=== PATIENT | female | born 1945 | race Caucasian/White ===

== ENCOUNTER 2017-01-06 15:00 | Outpatient (RCR) | payer MEDICARE, BC, SELFPAY ==
--- NOTE | 2017-01-06 11:25 | HP.PTEVAL_ITS ---
Patient's Visit Information SHAWN HUMPHREYS is a 71 year old F referred to Physical Therapy by Eddie Easley with a diagnosis of Bilateral Shoulder pain. Date of Evaluation: 01/06/17 Physical Therapist: Winter Castro - Visit Plan Frequency: 2x /Week Duration: 4 Weeks Plan: Follow up with MD for possible imaging then PT for strength, function and pain management. - Subjective Subjective: Had an injection in the right shoulder- ended up with a weaker right arm. 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 [place] something in her deltoid go but it didn't really bother her. Now its getting worse. Can't write without pain, put a seat belt on. Pain goes from shoulder to elbow. Right hand dominate. Can't do anything without pain. Has gotten worse since end of November. Sleep: doesn't keep her awake at night. Worst: 10/08 Agg: any movement, driving, writing. Best: 03/10 achy. Eases: resting it. Writting- sharp pains. The pain feels deep. No N/T in the hand. Has not had an MRI. Has not gone to see PCP yet was just referred to PT. No neck-no shoulder blade pain. No PETE, blurred vision, dizziness. Can't do any of her normal exercise secondary to pain. PMHx/Meds: no change since - Objective Posture: FH, RS, Increased guarding of the right UE. Palpation: tender along medial border of the scapula with moderate winging, upper trap to the tip of the acromion- along the bicpital groove. ROM: WNL in all planes but reports pain at end range IR behind the back and throughout ROM abduction. elbow/wrist/ hand: WNL. Cervical: WNL. Strength: Scap: fair minus, Shoulder: flexion/ abduction: 4-/5 with pain, extn: 5/5, IR: 4/5, ER: 3+/5 with pain. Elbow: 5/5 with pain, Wrist/Hand: WNL. Sensation: WNL. Special Test: Empty Can: positive , [place] Impingment: positive - Goals Goal 1:: Patient will be I with HEP and progression Goal Time Frame: 4-6 Weeks Goal 2:: Patient will demo full AROM with 0/10 pain Goal Time Frame: 4-6 Weeks Goal 3:: Patient britt demo full strength in UE where deficit to ease ADL's. Goal Time Frame: 4-6 Weeks Goal 4:: Patient will maintain proper posture to demo increased scap s/s. Goal Time Frame: 4-6 Weeks - Rehabilitation Potential Physical Therapy Diagnosis: Patient presents with hypomobility- she has decreased ROM, strength and muscular enduarance leading to poor posture and increased pain with ADL's. - Anticipated Interventions Patient/Client Instruction: Educate patient on: Benefits of Fitness Program For the Purpose of:: To increase tolerance to activity/condition/position Therapeutic Exercise to Include: Strength training, Endurance training, Agility training, Body mechanics, Postural training, Passive ROM, Active ROM, Scapular Strength/Stabilization For the Purpose of:: To improve muscle performance and motor function TENS: Yes Cryotherapy (ice pack, ice massage): Yes Thermo therapy (hot pack): Yes Ultrasound (thermal/non thermal): Yes For the Purpose of:: To decrease pain Thank you for the opportunity to evaluate your patient. For Medicare and Medicare HMO plans, please review the plan of care and approve it. It will need to be FAXED BACK to us at [phone] for Medicare purposes. Please let me know if there are questions or concerns regarding this plan of care. Physician Signature: Date:
--- NOTE | 2017-06-07 14:43 | HP.PT.NRP ---
HP - Discharge Summary (1) - Patient Information SHAWN HUMPHREYS was seen in my office for initial evaluation on 01/06/17. The following Plan of Care was established for this patient: Initial Frequency: 2x /Week Initial Duration: 4 Weeks - Anticipated Interventions Patient/Client Instruction: Educate patient on: Benefits of Fitness Program For the Purpose of:: To increase tolerance to activity/condition/position Therapeutic Exercise to Include: Strength training, Endurance training, Agility training, Body mechanics, Postural training, Passive ROM, Active ROM, Scapular Strength/Stabilization For the Purpose of:: To improve muscle performance and motor function TENS: Yes Cryotherapy (ice pack, ice massage): Yes Thermo therapy (hot pack): Yes Ultrasound (thermal/non thermal): Yes For the Purpose of:: To decrease pain This patient was last seen in our office . Pertinent comments regarding their Physical therapy will appear below: Patient has not attended PT in over 30 days and is appropriate for d/c and return to MD for further evaluation At this point I will be discontinuing this patient from physical therapy. I would be happy to see this patient again in the future if found appropriate by the physician. Thank you! Winter Castro
== END 2017-01-14 19:00 | disposition home or self-care (01) ==
LOC: PT 01-14 15:00
PROVIDERS: Family Provider Student in an Organized Health Care Education/Training Program; PCP Student in an Organized Health Care Education/Training Program; Visit Provider Student in an Organized Health Care Education/Training Program
DX: M25.511 Pain in right shoulder (principal); M25.512 Pain in left shoulder
CPT/HCPCS: 97110; 97161; G8978; G8979

== ENCOUNTER 2017-08-10 11:00 | Outpatient (RCR) | payer MEDICARE, BC, SELFPAY ==
--- NOTE | 2017-07-07 14:28 | HP.PTEVAL_ITS ---
Patient's Visit Information SHAWN HUMPHREYS is a 71 year old F referred to Physical Therapy by Jf Broderick MD with a diagnosis of IMPINGEMENT SYNDROME OF RIGHT SHOULDER. Date of Evaluation: 07/07/17 Physical Therapist: Larisa Malone - Visit Plan Frequency: 3x /Week Duration: 4-6 Weeks Plan: TRANSFER OF CARE TO TIFFANIE SWENSON, PT AT PATIENTS REQUEST. POSTURE CORRECTION/STRENGTHENING, INSTRUCTION IN APPROPRIATE BODY MECHANICS AND ACTIVITY MODIFICATIONS. SCOTTY UE ROM, STRETCHING AND STRENGTHENING. HEP INSTRUCTION. - Subjective Subjective: Diagnosis: IMPINGEMENT SYNDROME OF RIGHT SHOULDER. PT Order: Evaluate and Treat, Phase 1, Phase 2, Phase 3 and Terminal Stretch. Also, She has some loss of motion and i want aggressive stretching before too much strengthening. Work/Leisure: RETIRED. Disability: NO. Present symptoms: RIGHT SHOULDER PAIN. NO NUMBNESS OR TINGLING. Present since: ABOUT ONE YEAR. Pain Scale: WORST 9/10, LEAST 0/10. Currently: 0/10. Commenced as a result of: PICKLE BALL AND YOGA - OVER USE. Symptoms at onset: THE FRONT OF THE RIGHT SHOULDER - WAS INITIALLY DIAGNOSED WITH BICEPS TENDONITIS. Worse: GETTING DRESSED, MOVING ARM OUT TO THE SIDE, LIFTING WITH RIGHT UE, STRETCHING , LYING ON RIGHT SIDE AND REACHING FORWARD. SOMETIMES THE PAIN IS RANDOM. Better: RESTING ARM AT SIDE IS THE MAIN THING. Disturbed sleep: YES. Previous history/Previous treatment: 2013 ROTATOR CUFF PROBLEMS TREATED AND HELPED WITH PT. IN 2011 HISTORY OF SEVERE MEDIAL EPICONDYLITIS - TREATED AND HELPED WITH PLASMA. THIS EPISODE: 2 CORTISONE SHOTS (MOST RECENT ONE A WEEK AGO) AND HOME EX PROGRAM. THE FIRST SHOT HELPED FOR ABOUT A MONTH. HOME EX PROGRAM DID NOT HELP. SECOND SHOT A WEEK AGO INCREASED MOVEMENT IN HER SHOULDER AND MAYBE HELPED THE PAIN SOME. Dizziness: NO. Tinnitis: NO. Nausea : NO. Difficulty Swollowing: NO. Gait: NORMAL. Accidents: NO. Unexplained weight loss: NO. Imaging: RIGHT SHOULDER X-RAY AND MRI. X-RAY WAS NORMAL PER PATIENT REPORT. RIGHT SHOULDER MRI A WEEK AGO SHOWING SUPRASPINATUS PARTIAL TEAR AND ARTHRITIS. PMH: UNREMARKABLE - EXCEPT 40 YEAR HISTORY OF NECK PROBLEMS. Recent major surgery: UNREMARKABLE. OTHER: STATES DR. BRODERICK DOES NOT WANT TO DO SURGERY UNLESS THEY HAVE TO. STATES HER SHOULDER IS ACTING MORE LIKE A FROZEN SHOULDER FROM DECREASED USE AT THIS POINT. PATIENT REPORTS THEY ARE REALLY HOPING PT WILL HELP. PATIENT REPORTS DR. BRODERICK IS NOT A FAN OF DRY NEEDLING BUT WANTS HER TO TRY EX AGAIN. SEE RECENT EPISODE OF CARE WITH JOSE D JOHNSON DPT HERE FOR PT IN [facility] EMR FOR FURTHER REHAB HISTORY. - Objective Sitting Posture: FAIR. MILD FH. SCOTTY SCAPULAR WINGING. Other Observations: INDEP TRANSFERS. INDEP GAIT WITHOUT AD. PATIENT IS PLEASANT AND COOPERATIVE TO WORK WITH. Motor deficit: PATIENT IS RIGHT HAND DOMINANT WITH A RIGHT FREIGHT TRAFFIC CONSULTANT STRENGTH OF 60 LBS AND LEFT 55 LBS. RIGHT UE STRENGTH WITH MMT'ING: SHOULDER FLEX 3-/5, ABD 2+/5, IR 3-/5, ER 3-/5. ELBOW FLEX 4/5, EXT 5/5. WRIST/HAND 5/ 5. LEFT UE STRENGTH IS WFL. Sensory deficit: SCOTTY UE LIGHT TOUCH SENSATION IS INTACT AND SYMMETRICAL. ROM deficit: SEATED RIGHT SHOULDER AROM INTO FLEX 140 DEG, ABD 80 DEG. PATIENT MOVES INTO SCAPTION WITHOUT CUEING FOR ABD TO MEASURE. SUPINE PROM RIGHT SHOULDER: FLEX 154 DEG, ABD 114 DEG, ER/IR = 45 DEG /40 DEG WITH 90 DEG ABD. PATIENT WITH C/O PAIN AT THE END OF THE AVAILABLE RANGE WITH ROM TESTING OF THE RIGHT SHOULDER ALL PLANES ESPECIALLY ABD AND ER AND IR. Reflexes: 2/3 SCOTTY UE'S. Dural Signs: POSITIVE RIGHT UE. INCREASED PAINFREE ROM OF RIGHT SHOULDER WITH MANUAL CERVICAL DISTRACTION (TESTED WITH TWO THERAPISTS). Cervical Mvmt Loss: Flex: NIL. Pro: NIL. Ext: MIN. Ret: MOD. RSB: MOD. LSB: MOD. R Rot: MIN. L Rot: MIN. PATIENT WITH C/O RIGHT NECK SORENESS OF CERVICAL TESTING. Postural strength: FAIR. Palpation: MAIN AREA OF RIGHT SHOULDER TENDERNESS IS IN THE BICIPITAL GROOVE REGION. NO ACUTE CERVICAL TENDERNESS WITH PALPATION. SPECIAL TESTS: POSITIVE EMPTY CAN TEST RIGHT UE. - Goals Goal 1:: DECREASE C/O RIGHT SHOULDER PAIN Goal Time Frame: 4-6 Weeks Goal 2:: INCREASE FUNCTIONAL ROM OF RIGHT SHOULDER Goal Time Frame: 4-6 Weeks Goal 3:: INCREASE FUNCTIONAL STRENGTH OF RIGHT UE Goal Time Frame: 4-6 Weeks Goal 4:: PATIENT WILL BE ABLE TO SUCCESSFULLY TRANSITION BACK TO PRIOR LEVEL OF FUNCTION Goal Time Frame: 8-12 Weeks Goal 5:: INDEP HEP FOR CONTINUED IMPROVEMENT ONCE FORMAL PHYSICAL THERAPY CONCLUDES Goal Time Frame: 8-12 Weeks - Rehabilitation Potential Rehabilitation Potential: Fair - Anticipated Interventions Patient/Client Instruction: Educate patient on: Condition, Plan of Care, Risk Factors, Benefits of Fitness Program For the Purpose of:: To improve self management Therapeutic Exercise to Include: Strength training, Body mechanics, Postural training, Flexibilty training, Passive ROM, Active ROM, Scapular Strength/ Stabilization Comment: FOCUS ON FULL RIGHT SHOULDER ROM TOLERATED PRIOR TO STRENGTHENING. For the Purpose of:: To decrease pain, To increase ROM, To improve muscle performance and motor function, To improve ability to perform ADL's, To improve ability of physical actions for home/community/work/leisure Manual Therapy Techniques to Include: Mobilization For the Purpose of:: To decrease pain, To increase ROM Cryotherapy (ice pack, ice massage): Yes Thermo therapy (hot pack): Yes Ultrasound (thermal/non thermal): Yes For the Purpose of:: To decrease pain, To decrease swelling/inflammation, To increase ROM, To improve nutrient delivery to tissue Thank you for the opportunity to evaluate your patient. For Medicare and Medicare HMO plans, please review the plan of care and approve it. It will need to be FAXED BACK to us at [phone] for Medicare purposes. Please let me know if there are questions or concerns regarding this plan of care. Physician Signature: Date:
== END 2017-08-10 19:00 | disposition home or self-care (01) ==
LOC: PT 11:00
PROVIDERS: Family Provider Student in an Organized Health Care Education/Training Program; PCP Student in an Organized Health Care Education/Training Program; Visit Provider Orthopaedic Surgery
DX: M75.41 Impingement syndrome of right shoulder (principal)
CPT/HCPCS: 97035; 97110; 97140; 97162; 97530

== ENCOUNTER 2017-12-15 09:55 | Outpatient (RCR) | payer MEDICARE, BC, SELFPAY | END 2017-12-15 19:00 | disposition home or self-care (01) | LOC: PT 09:55 | PROVIDERS: Family Provider Student in an Organized Health Care Education/Training Program; PCP Student in an Organized Health Care Education/Training Program; Referring Provider Student in an Organized Health Care Education/Training Program; Visit Provider Student in an Organized Health Care Education/Training Program | DX: M75.111 Incomplete rotator cuff tear or rupture of right shoulder, not specified as traumatic (principal) ==

== ENCOUNTER 2021-12-04 10:00 | Outpatient (RCR) | payer MEDICARE, BC, SELFPAY ==
--- NOTE | 2021-10-29 10:28 | HP.PTEVAL_ITS ---
Patient's Visit Information SHAWN HUMPHREYS is a 76 year old F referred to Physical Therapy by Dr. Eddie Easley DO with a diagnosis of Right Shoulder Pain. Date of Evaluation: 10/29/21 Physical Therapist: Winter Castro DPT - Visit Plan Frequency: 2x /Week Duration: 4 Weeks Plan: Focus on scapular strength/stabilization and postural awareness- Modality of US and DN PRN. HEP Given IE: Postural Education, bilateral ER with OTB, Wall scapular PU, mid row - Subjective Patient reports that she has had major issues with right RTC due to pickleball. Injured in August was getting better- a month ago she fell in the middle of the night and wrenched her shoulder. Did have an x-ray which was negative- she feels is more impingement then a RTC. The shoulder aches but if she is not doing anything it does not bother her. Worst: 10/08. Agg: taking her arm back when out to the side, and anything with ER included in it. She cant do chatarangas (full or knees) or tuscarora. Described as sharp. As soon as she stops the movement the pain goes away. She has not had no MRI or injections. No N/T in the hands. No PETE, blurred vision or dizziness. Did have a cervical x-ray due to N/T in the left hand. 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 She is playing pickleball every day if she could- she is not in a league more picking table worker games. In [place] she is in a league. Going Dec 30. She uses her backhand a lot to try to help with her RTC. She has never had an MRI on her shoulder. Sleep: not disturbed- back sleeper- but does not hurt to be on her side. PMHx: hyperparathyroidism, endometrial cancer. Meds: adderol, Levothyroxine - Objective Posture: FH, RS- can correct with tactile cues but does not maintain. Gait: good arm swing and trunk rotation. Palpation: tender along bicipital groove and down the deltoid. ROM: Cervical: WFL, Elbow/Wrist/Fingers: WNL. Shoulder: WNL in all planes Strength: Scap: fair, Shoulder: 4/5 in neutral with pain in all directions with the exception of 4+/5 no pain with extension. 90/90 IR/ER: 4-/5 with pain. - Special Tests R Shoulder Lift Off Test - Subscapular Tear: Positive R Shoulder Drop Sign - IS Test: Positive R Shoulder Empty Can - SS: Positive R Shoulder Belly Press - SupScap: Positive R Shoulder Neer - Impingement: Positive R Shoulder Sandy Mariusz - Impingement: Positive R Shoulder Biceps Load Test - Labrum: Positive - Balance/Special Test Scores Quick DASH Score: 25.0000 - Goals Goal 1:: Patient will be I with HEP and progression Goal Time Frame: 4-6 Weeks Goal 2:: Patient will maintain proper posture t/o tx session to demo increased scap s/s Goal Time Frame: 4-6 Weeks Goal 3:: Patient will report 80% improvement Goal Time Frame: 4-6 Weeks - Rehabilitation Potential Physical Therapy Diagnosis: Patient presents with hypomobility- she has decreased UE and scapular strength/stabilization and muscular endurance leading to increased pain with ADL's/recreational activities and poor posture. Rehabilitation Potential: Good - Anticipated Interventions Patient/Client Instruction: Educate patient on: Benefits of Fitness Program Therapeutic Exercise to Include: Strength training, Endurance training, Coordination, Agility training, Body mechanics, Postural training, Flexibilty training, Dynamic Lumbar Stabilization, Scapular Strength/Stabilization For the Purpose of:: To improve muscle performance and motor function Manual Therapy Techniques to Include: Mobilization, Functional dry needling, Soft tissue mobilization For the Purpose of:: To improve nutrient delivery to tissue TENS: Yes Cryotherapy (ice pack, ice massage): Yes Thermo therapy (hot pack): Yes Ultrasound (thermal/non thermal): Yes Thank you for the opportunity to evaluate your patient. For Medicare and Medicare HMO plans, please review the plan of care and approve it. It will need to be FAXED BACK to us at [phone] for Medicare purposes. For Medicare only, by signing this I certify the plan of care. Please let me know if there are questions or concerns regarding this plan of care. Physician Richar quintero: Date:
--- NOTE | 2022-01-29 08:07 | HP.PT.NRP ---
SHAWN HUMPHREYS was seen in my office for initial evaluation on 10/29/21. The following Plan of Care was established for this patient: Initial Frequency: 2x /Week Initial Duration: 4 Weeks Patient/Client Instruction: Educate patient on: Benefits of Fitness Program Therapeutic Exercise to Include: Strength training, Endurance training, Coordination, Agility training, Body mechanics, Postural training, Flexibilty training, Dynamic Lumbar Stabilization, Scapular Strength/Stabilization For the Purpose of:: To improve muscle performance and motor function Manual Therapy Techniques to Include: Mobilization, Functional dry needling, Soft tissue mobilization For the Purpose of:: To improve nutrient delivery to tissue TENS: Yes Cryotherapy (ice pack, ice massage): Yes Thermo therapy (hot pack): Yes Ultrasound (thermal/non thermal): Yes This patient was last seen in our office . Pertinent comments regarding their Physical therapy will appear below: Patient to return to MD for further evaluation-Patient has not attended physical therapy in over 30 days- at this time d/c is appropriate and return to the MD for further evaluation as needed At this point I will be discontinuing this patient from physical therapy. I would be happy to see this patient again in the future if found appropriate by the physician. Thank you! Winter Castro, BGT Balance/Gait/Functional tests - Balance/Special Test Scores Quick DASH Score: 25.0000
== END 2021-12-04 19:00 | disposition home or self-care (01) ==
LOC: PT 10:00
PROVIDERS: PCP Student in an Organized Health Care Education/Training Program; Referring Provider Student in an Organized Health Care Education/Training Program; Visit Provider Student in an Organized Health Care Education/Training Program
DX: S49.91XD Unspecified injury of right shoulder and upper arm, subsequent encounter (principal); M75.41 Impingement syndrome of right shoulder
CPT/HCPCS: 97035; 97110; 97162; 97530

== ENCOUNTER 2022-05-01 10:30 | Outpatient (RCR) | payer MEDICARE, BC, SELFPAY ==
--- NOTE | 2022-02-09 15:26 | HP.PTEVAL_ITS ---
Patient's Visit Information SHAWN HUMPHREYS is a 76 year old F referred to Physical Therapy by Dr. Jf Feliciano MD with a diagnosis of R shoulder arthroscopic subacromial decompression and biceps tenodesis.. Date of Evaluation: 02/09/22 Physical Therapist: Dalila Dewey - Visit Plan Frequency: 2-3x /Week Duration: 4 Weeks Plan: Begin with AROM exercises within pt tolerance to pain. Progress to isometrics/light strengthening in shoulder mid range of motion. Progress to occupation/activity specific exercises per pt tolerance and healing. HEP given for AROM/AAROM - Subjective Pt h/o right shoulder arthroscopic subacromial decompression and biceps tendonesis on 01/29/22. Pt nerve block lasted 4 days. Pt wore sling for a week. F/u was Wednesday and all looks good. No restrictions per surgeon on lifting and ROM, per pt tolerance. Pt is very active. 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 Worst pain: external rotation 5/10. No medication needed currently; Tylenol taken up until last week. Uses ice for pain management. Pt goes to [place] in the winter (leaves mid March) and would like to finish/take plan with by that time. Denies any other issues. - Pain R shoulder Pain Intensity (Out of 10): 2 Pain Intensity Range: 0, 5 - Objective AROM measured in sitting: R Shoulder flexion palm down: lacks 10 degrees (AAROM). Palm up: 90 degrees (AAROM), compensates with shoulder hike. R Shoulder extension: WFL. R ER: 45 degrees with arm at side. R IR: reaches behind back to L3. R shoulder abduction: 45 degrees. L shoulder: WNL. UEs otherwise WFL. MMT: L shoulder 5/5. R shoulder: NT. UEs otherwise 5/5 - Balance/Special Test Scores Quick DASH Score: 59.0900 - Goals Goal 1:: Pt to be I with HEP and progression. Goal Time Frame: 2-4 Weeks Goal 2:: Pt to demonstrate full AROM of R shoulder in all planes to promote return to PLOF Goal Time Frame: 6-8 Weeks Goal 3:: Pt to demonstrate 5/5 strength in shoulder F, E, ER, IR and ABD/ADD to promote return to desired extracurriculars without pain (ex: pickleball, golf). 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 Goal Time Frame: 8-12 Weeks Goal 5:: Pt to report ability to use RUE for watercolor painting activities without restriction or pain. Goal Time Frame: 6-8 Weeks - Rehabilitation Potential Physical Therapy Diagnosis: Decreased AROM and strength of R shoulder secondary to above mentioned surgery. Rehabilitation Potential: Excellent - Anticipated Interventions Patient/Client Instruction: Educate patient on: Condition, Plan of Care, Benefits of Fitness Program Therapeutic Exercise to Include: Strength training, Active ROM, Scapular Strength/Stabilization For the Purpose of:: To decrease pain, To decrease swelling/inflammation, To increase ROM, To improve ability to perform ADL's Thank you for the opportunity to evaluate your patient. For Medicare and Medicare HMO plans, please review the plan of care and approve it. It will need to be FAXED BACK to us at [phone] for Medicare purposes. For Medicare only, by signing this I certify the plan of care. Please let me know if there are questions or concerns regarding this plan of care. Physician Signature: Date:
== END 2022-05-01 19:00 | disposition home or self-care (01) ==
LOC: PT 10:30
PROVIDERS: PCP Student in an Organized Health Care Education/Training Program; Referring Provider Orthopaedic Surgery; Visit Provider Orthopaedic Surgery
DX: M75.21 Bicipital tendinitis, right shoulder (principal)
CPT/HCPCS: 97110; 97161; 97530

== ENCOUNTER 2022-07-30 15:51 | Outpatient (RCR) | payer MEDICARE, BC, SELFPAY ==
--- NOTE | 2022-07-30 16:43 | HP.PTEVAL_ITS ---
Patient's Visit Information SHAWN HUMPHREYS is a 77 year old F referred to Physical Therapy by Dr. Eddie Easley DO with a diagnosis of Sciatica R side. Date of Evaluation: 07/30/22 Physical Therapist: Jonatan Mendiola, DPT, OCS, CSCS - Visit Plan Frequency: 1-2x /Week Duration: 2-4 Weeks Plan: 1-2x/week as needed for 4 weeks for... 1. ext ROM and return to strength(pilates, yoga) ensuring she gets some hip strength and multifidus and erector spinae.). 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 confidence back for pickle ball and golf. - Subjective Started to get back pain and L leg pain posterior for no apparent reason in June. Got meds last and did not help. Ice and heat did help a little bit. Standing excruciating adn sitting better. To ER this [ast wednesday and given antiinflammtory and prednisone pack whcih really helped. Feels great today. Maybe started with gardening and lots of golf lessons and pickle ball. Teaches yoga and pilates regularly. Golf and gardening was alot. No h/o of this pain. Pain was to 9/10 in posterior L leg to ankle. Currently just L buttock. Sleeping well now on steroids. 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 Cancelled classes for rest of June. - Pain L posterior leg. Pain Intensity (Out of 10): 0 Pain Intensity Range: 0, 9 - Objective Walking well and without pain, quickly. Trasnfers table and chair I. Steps reciprocal without rail up and down and easy. LB AROM ext mild limitations, no pain, flexiona dn SB are full and painfree today. Hip/knee/ankle aROM WFL with good flexibility in quad, mild deficits in HS and psoas. B. reflexes 2/3 patella and achilles B. Sensation to gross light touch WNL B. Strength hip flexion, knee flex/ext, DF and PF 4+/5, hip rotations 4-, back ext 4- and abs 3+, NO PAIN. - slr, - SLUMP TODAY. pATIENT OBVIOUSLY MUCH BETTER ON STEROIDS ADN ONLY MISSING EXT IN lb TODAY. - Balance/Special Test Scores Oswestry Low Back Score: 28 - Goals Goal 1:: Patient continue to have 0 pain for 1 week after steroids done Goal Time Frame: 4-6 Weeks Goal 2:: Full extension low back without pain Goal Time Frame: 4-6 Weeks Goal 3:: back to yoga and pilates activities as normal Goal Time Frame: 4-6 Weeks Goal 4:: oswestry back score 10 or less. Goal Time Frame: 4-6 Weeks - Rehabilitation Potential Physical Therapy Diagnosis: R sciatica resolving, avoiding aggravating activities Rehabilitation Potential: Good - Anticipated Interventions Patient/Client Instruction: Educate patient on: Condition, Plan of Care For the Purpose of:: To decrease pain, To increase ROM, To improve muscle performance and motor function, To increase tolerance to activity/condition/position, To improve ability of physical actions for home/com munity/work/leisure Therapeutic Exercise to Include: Strength training, Flexibilty training, Passive ROM, Active ROM For the Purpose of:: To decrease pain, To increase ROM, To improve nutrient delivery to tissue, To increase tolerance to activity/condition/position, To improve ability of physical actions for home/community/work/leisure Thank you for the opportunity to evaluate your patient. For Medicare and Medicare HMO plans, please review the plan of care and approve it. It will need to be FAXED BACK to us at [phone] for Medicare purposes. For Medicare only, by signing this I certify the plan of care. Please let me know if there are questions or concerns regarding this plan of care. Physician Signatur e: Date:
== END 2022-07-30 19:00 | disposition home or self-care (01) ==
LOC: PT 15:51
PROVIDERS: PCP Student in an Organized Health Care Education/Training Program; Referring Provider Student in an Organized Health Care Education/Training Program; Visit Provider Student in an Organized Health Care Education/Training Program
DX: M54.31 Sciatica, right side (principal); M47.26 Other spondylosis with radiculopathy, lumbar region
CPT/HCPCS: 97161

== ENCOUNTER 2022-11-24 10:01 | Outpatient (RCR) | payer MEDICARE, BC, SELFPAY | END 2022-11-24 19:00 | disposition home or self-care (01) | LOC: PT 10:01 | PROVIDERS: PCP Student in an Organized Health Care Education/Training Program; Visit Provider Student in an Organized Health Care Education/Training Program | DX: M25.511 Pain in right shoulder (principal); G89.29 Other chronic pain ==